=== PATIENT | male | born 1950 | race Caucasian/White ===

== ENCOUNTER 2025-05-28 23:18 | Emergency (ER) | payer OTHER ==
--- NOTE | 2025-05-29 00:52 | ER ---
Nurse's Notes [facility] Name: Rashawn Maxwell Age: 74 yrs Sex: Male : 1950 Arrival Date: 05/28/2025 Time: 23:18 Bed 14 Private MD: Diagnosis: [facility] (current) use of anticoagulants;Hematuria, unspecified Presentation: 05/29 00:24 Chief complaint: EMS states: Patient saw black stuff in his urine. Coronavirus tb4 screen: At this time, the client does not indicate any symptoms associated with coronavirus-19. Ebola Screen: No symptoms or risks identified at this time. Initial Sepsis Screen: Does the patient meet any 2 criteria? No. Patient's initial sepsis screen is negative. Does the patient have a suspected source of infection? No. Patient's initial sepsis screen is negative. Risk Assessment: Do you want to hurt yourself or someone else? Patient reports no desire to harm self or others. Onset of symptoms was May 25, 2025. 00:24 Method Of Arrival: EMS: [facility] tb4 02:44 Acuity: TRACI 5 tb4 Triage Assessment: 00:33 General: Appears in no apparent distress. comfortable, Behavior is calm, cooperative. tb4 Pain: Denies pain. EENT: No signs and/or symptoms were reported regarding the EENT system. Neuro: Level of Consciousness is awake, alert, obeys commands, Oriented to person, place, time, situation, Moves all extremities. Full function Weakness generalized. Speech is normal, Facial symmetry appears normal. Respiratory: Airway is patent Respiratory effort is even, unlabored, Respiratory pattern is regular, symmetrical. GI: No signs and/or symptoms were reported involving the gastrointestinal system. Derm: No signs and/or symptoms reported regarding the dermatologic system. Skin is intact, is fragile, is thin, Skin is dry, Skin is normal, Skin temperature is warm. Musculoskeletal: No signs and/or symptoms reported regarding the musculoskeletal system. Circulation, motion, and sensation intact. Range of motion: intact in all extremities. Historical: - Allergies: 00:33 No Known Allergies; tb4 - Home Meds: 00:33 Eliquis oral [Active]; guaifenesin Oral [Active]; Omeprazole Oral [Active]; tb4 levofloxacin Oral [Active]; - PMHx: 00:33 pulmonary embolism; Chronic obstructive lung disease; Gastroesophageal reflux disease; tb4 - PSHx: 00:33 Right knee; tb4 - Immunization history:: Adult Immunizations up to date. - Infectious Disease History:: Denies. - Social history:: Smoking status: Patient/guardian denies using tobacco, the patient reports quitting approximately 10 years ago, Patient/guardian denies using alcohol, street drugs, IV drugs, tobacco products. - Family history:: not pertinent. Screenin:28 [facility] ED Fall Risk Assessment (Adult) History of falling in the last 3 months, tb4 including since admission No falls in past 3 months (0 pts) Confusion or Disorientation No (0 pts) Intoxicated or Sedated No (0 pts) Impaired Gait Yes (1 pt) Mobility Assist Device Used Yes (1 pt) Altered Elimination No (0 pt) Score/Fall Risk Level 0 - 2 = Low Risk Maintained a safe environment. Abuse screen: Denies threats or abuse. Denies injuries from another. Nutritional screening: No deficits noted. Tuberculosis screening: No symptoms or risk factors identified. Assessment: 01:00 General: Appears in no apparent distress. comfortable, Behavior is calm, cooperative. tb4 Pain: Denies pain. Neuro: Level of Consciousness is awake, alert, obeys commands, Oriented to person, place, time, situation, Building Custodian are equal bilaterally Moves all extremities. Full function Weakness in bilateral leg(s) Gait is unsteady, Patient uses a walker. Speech is normal, Facial symmetry appears normal. Respiratory: Airway is patent Respiratory effort is even, unlabored, Respiratory pattern is regular, symmetrical. GI: No signs and/or symptoms were reported involving the gastrointestinal system. : Urine is clear, lalo Denies any issues with voiding Parent/caregiver report the patient having reports stuff in urine. EENT: No signs and/or symptoms were reported regarding the EENT system. Derm: No signs and/or symptoms reported regarding the dermatologic system. Skin is intact, is thin, Skin is dry, Skin is normal, Skin temperature is warm. Musculoskeletal: No signs and/or symptoms reported regarding the musculoskeletal system. Circulation, motion, and sensation intact. Range of motion: intact in all extremities. 01:57 Reassessment: Patient is waiting on his to return with the oxygen tank. tb4 Vital Signs: 00:19 BP 120 / 78; Pulse 100; Resp 17; Pulse Ox 94% on 2 lpm NC; tb4 01:30 BP 117 / 81; Pulse 86; Resp 18; Pulse Ox 96% on 1 lpm NC; Pain 0/10; tb4 02:27 BP 133 / 75; Pulse 83; Resp 18; Pulse Ox 97% on 1 lpm NC; Pain 0/10; tb4 01:30 Pain Scale: Adult tb4 02:27 Pain Scale: Adult tb4 ED Course: 00:13 Patient arrived in ED. rv1 00:15 Ulysses Toledo MD is Attending Physician. [facility] 00:28 Patient has correct armband on for positive identification. Bed in low position. Call tb4 light in reach. Side rails up X 1. Side rails up X2. Adult w/ patient. Client placed on continuous cardiac and pulse oximetry monitoring. NIBP monitoring applied. Pulse ox on. Door closed. Lights dimmed. Warm blanket given. 00:28 No provider procedures requiring assistance completed. Urine collected: clean catch tb4 specimen, lalo colored. 00:33 Arm band placed on right wrist. tb4 00:53 Celestine Jon MD is Referral Physician. [facility] 00:59 UA Rfx Luigi Cult if indicated Sent. tb4 02:44 Triage completed. tb4 02:44 Provided Education on: Follow up with primary care.. tb4 02:45 Patient did not have IV access during this emergency room visit. O2 via Nasal Cannula. tb4 Administered Medications: No medications were administered Medication: 01:00 VIS not applicable for this client. tb4 Outcome: 00:52 Discharge ordered by . [facility] 02:45 Discharged to home via wheelchair, with family, tb4 02:45 Condition: stable 02:45 Discharge instructions given to patient, family, Instructed on discharge instructions, follow up and referral plans. Demonstrated understanding of instructions, follow-up care, 02:46 Patient left the ED. tb4 Signatures: Ulysses Toledo MD MD cha Villegas, Rebecca rv1 Cece Spring, LULU RN tb4
--- NOTE | 2025-05-29 00:53 | EDPHYS ---
Physician Documentation [facility] Name: Rashawn Maxwell Age: 74 yrs Sex: Male : 1950 Arrival Date: 05/28/2025 Time: 23:18 Bed 14 Private MD: ED Physician Ulysses Toledo HPI: 05/29 00:47 This 74 yrs old Male presents to ER via EMS with complaints of Urinary bruna Problem. 00:47 The patient presents with urinary symptoms, dark urine, bloody. Onset: The bruna symptoms/episode began/occurred yesterday. Modifying factors: The symptoms are alleviated by nothing, the symptoms are aggravated by nothing. Associated signs and symptoms: The patient has no apparent associated signs or symptoms. Severity of symptoms: At their worst the symptoms were mild, moderate, in the emergency department the symptoms are unchanged. The patient has experienced similar episodes in the past, several times. Historical: - Allergies: 00:33 No Known Allergies; tb4 - Home Meds: 00:33 Eliquis oral [Active]; guaifenesin Oral [Active]; Omeprazole Oral [Active]; tb4 levofloxacin Oral [Active]; - PMHx: 00:33 pulmonary embolism; Chronic obstructive lung disease; Gastroesophageal reflux disease; tb4 - PSHx: 00:33 Right knee; tb4 - Immunization history:: Adult Immunizations up to date. - Infectious Disease History:: Denies. - Social history:: Smoking status: Patient/guardian denies using tobacco, the patient reports quitting approximately 10 years ago, Patient/guardian denies using alcohol, street drugs, IV drugs, tobacco products. - Family history:: not pertinent. ROS: 00:47 Constitutional: Negative for fever, chills, and weight loss, Eyes: Negative for injury, bruna pain, redness, and discharge, ENT: Negative for injury, pain, and discharge, Neck: Negative for injury, pain, and swelling, Cardiovascular: Negative for chest pain, palpitations, and edema, Respiratory: Negative for shortness of breath, cough, wheezing, and pleuritic chest pain, Abdomen/GI: Negative for abdominal pain, nausea, vomiting, diarrhea, and constipation, Back: Negative for injury and pain, MS/Extremity: Negative for injury and deformity, Skin: Negative for injury, rash, and discoloration, Neuro: Negative for headache, weakness, numbness, tingling, and seizure, Psych: Negative for depression, anxiety, suicide ideation, homicidal ideation, and hallucinations, Allergy/Immunology: Negative for hives, rash, and allergies, Endocrine: Negative for neck swelling, polydipsia, polyuria, polyphagia, and marked weight changes, 00:47 : Positive for hematuria, dark urine, on abx, Exam: 00:47 Constitutional: This is a well developed, well nourished patient who is awake, alert, bruna and in no acute distress. Head/Face: Normocephalic, atraumatic. Eyes: Pupils equal round and reactive to light, extra-ocular motions intact. Lids and lashes normal. Conjunctiva and sclera are non-icteric and not injected. Cornea within normal limits. Periorbital areas with no swelling, redness, or edema. ENT: Nares patent. No nasal discharge, no septal abnormalities noted. Tympanic membranes are normal and external auditory canals are clear. Oropharynx with no redness, swelling, or masses, exudates, or evidence of obstruction, uvula midline. Mucous membranes moist. Neck: Trachea midline, no thyromegaly or masses palpated, and no cervical lymphadenopathy. Supple, full range of motion without nuchal rigidity, or vertebral point tenderness. No Meningismus. Chest/axilla: Normal chest wall appearance and motion. Nontender with no deformity. No lesions are appreciated. Cardiovascular: Regular rate and rhythm with a normal S1 and S2. No gallops, murmurs, or rubs. Normal PMI, no JVD. No pulse deficits. Respiratory: Lungs have equal breath sounds bilaterally, clear to auscultation and percussion. No rales, rhonchi or wheezes noted. No increased work of breathing, no retractions or nasal flaring. Abdomen/GI: Soft, non-tender, with normal bowel sounds. No distension or tympany. No guarding or rebound. No evidence of tenderness throughout. Back: No spinal tenderness. No costovertebral tenderness. Full range of motion. Skin: Warm, dry with normal turgor. Normal color with no rashes, no lesions, and no evidence of cellulitis. MS/ Extremity: Pulses equal, no cyanosis. Neurovascular intact. Full, normal range of motion., bilateral aka Neuro: Awake and alert, GCS 15, oriented to person, place, time, and situation. Cranial nerves II-XII grossly intact. Motor strength 5/5 in all extremities. Sensory grossly intact. Cerebellar exam normal. Normal gait. Psych: Awake, alert, with orientation to person, place and time. Behavior, mood, and affect are within normal limits. 00:47 : CVA tenderness, is absent, Male external genitalia: normal, no abrasion, no discharge, no erythema, no injury, no swelling, no tenderness, no evidence of ulceration, Bladder: is normal, non-distended, non-tender, Sexual behavior: the patient is not sexually active, Vital Signs: 00:19 BP 120 / 78; Pulse 100; Resp 17; Pulse Ox 94% on 2 lpm NC; tb4 01:30 BP 117 / 81; Pulse 86; Resp 18; Pulse Ox 96% on 1 lpm NC; Pain 0/10; tb4 02:27 BP 133 / 75; Pulse 83; Resp 18; Pulse Ox 97% on 1 lpm NC; Pain 0/10; tb4 01:30 Pain Scale: Adult tb4 02:27 Pain Scale: Adult tb4 MDM: 00:15 Medical Screening Exam initiated bruna 00:47 Differential diagnosis: nonspecific abdominal pain, UTI, urinary retention, Tierney bruna catheter problem, prostatitis, urethritis. Data reviewed: vital signs, nurses notes, lab test result(s), urinalysis. Consideration of Admission/Observation Escalation of care including admission/observation considered. I considered the following discharge prescriptions or medication management in the emergency department Medications were administered in the Emergency Department. See MAR. Test considered but Not performed: Labs: no cbc,no cmp. Historians other than the Patient: pt well informed , on abx, no difficulty. Care significantly affected by the following chronic conditions: Chronic Obstructive Pulmonary Disease, pe, gerd. 00:55 ED course: cont abx, and eliquis. bruna 05/29 00:46 Order name: UA Rfx Luigi Cult if indicated; Complete Time: :18 bruna Administered Medications: No medications were administered Disposition Summary: 05/29/25 00:52 Discharge Ordered Notes: Location: Home bruna Problem: new bruna Symptoms: have improved bruna Condition: Stable bruna Diagnosis - correction (current) use of anticoagulants bruna - Hematuria, unspecified bruna Followup: bruna - With: Private Physician - When: 2 - 3 days - Reason: Recheck today's complaints, Re-evaluation by your physician Followup: bruna - With: Celestine Jon MD - When: 2 - 3 days - Reason: Recheck today's complaints, Re-evaluation by your physician Discharge Instructions: - Discharge Summary Sheet bruna - Hematuria, Adult bruna - Bleeding Precautions When on Anticoagulant Therapy, Adult bruna Forms: - Medication Reconciliation Form bruna - Antibiotic Education bruna - Prescription Opioid Use bruna - Patient Portal Instructions bruna - Leadership Thank You Letter [facility] Signatures: Dispatcher [employer] Ulysses Haywood MD MD cha Brown, Terri, RN RN tb4
[2025-05-29 01:24] LABS: Sqamous Epithelial None Seen /HPF (None Seen); Urine Culture Reflex Order NOT NEEDED; Urine Microscopic Reflex YN ORDER UMIC
[2025-05-29 02:53] VITALS: BP 133/75; O2SAT 97
== END 2025-05-29 02:46 | disposition home or self-care (01) ==
LOC: ER 23:18
DX: R31.9 Hematuria, unspecified (principal); Z79.01 Long term (current) use of anticoagulants
CPT/HCPCS: 81001; 99284